=== PATIENT | female | born 1965 | race Caucasian/White ===

== ENCOUNTER → 2016-10-14 | Day surgery (SDC) | payer OTHER ==
[2016-09-21 04:59] VITALS: BMI 26.2
[~2016-10-14] MED LIST: BUPIVACAINE 0.5% 30 ML VIAL ONE; DEXAMETHASONE 4 MG/ML VIAL IV ONE; EPHEDrine 50 MG/ML VIAL IM ONE; FENTANYL 100 MCG/2 ML VIAL IV ONE; FENTANYL 100 MCG/2 ML VIAL IV PRN; HYDROmorphone 1 MG INJECTION IV PRN; LABETALOL 20 MG/4 ML SYRINGE IV PRN; LIDOCAINE 100 MG PFS IV ONE; Levofloxacin 500 mg/100 ml D5W 500 MG/100 ML RTU IV ONE; MEPERIDINE 25 MG/ML TUBEX IV PRN; METOCLOPRAMIDE 10 MG/2 ML VIAL ONE; MIDAZOLAM 2 MG/2 ML VIAL IV ONE; ONDANSETRON HCL 4 MG ODT TAB PO PRN; ONDANSETRON HCL 4 MG/2 ML VIAL IV ONE; ONDANSETRON HCL 4 MG/2 ML VIAL IV PRN; PROPOFOL 200 MG/20 ML VIAL IV ONE; hydrALAZINE 20 MG/ML VIAL IV PRN
[2016-10-14 10:50] VITALS: TEMP 97.1
--- NOTE | 2016-10-14 10:54 | HIM.ANES ---
Anesthesia Evaluation & Plan Diagnoses: TYPE 2 DIABETES MELLITUS WITH HYPERGLYCEMIA (10/14/16) GANGRENE, NOT ELSEWHERE CLASSIFIED (10/14/16) - Focused Review of Systems Cardiac History: Yes: Hx Hypertension (BLOOD PRESSURE FLUCTUATES), Hx Cardiac Disorders No: Hx Cardiac Catheterization, Hx Angioplasty, Hx Coronary Artery Bypass Graft HEENT: Yes: Hx Vision Problem (glasses), Other HEENT Problems Respiratory: No: Hx Asthma, Hx Emphysema, Hx Chronic Obstructive Pulmonary Disease (COPD) , Hx Pneumonia Gastrointestinal: Yes: Hx Colonoscopy (2016 NORMAL) No: Hx Pancreatitis, Hx Gastrointestinal Disorders, Hx Diverticulosis Genitourinary: No: Hx Renal Disease, Hx Renal Failure Neurological/Musculoskeletal: Yes: Hx Neurological Disorders No: HX Cerebrovascular Accident, Hx Dementia, Hx Seizures Other Neurological Problems: DIABETIC NEUROPATHY Psychological: No Hx Depression, No Hx Mental/Emotional Disorders Endocrine: Yes: Hx Non-Insulin Dependent Diabetes (dx 2004) Blood/Autoimmune: No: Hx Blood Transfusions, Hx Anemia, Hx AIDS, Hx Hepatitis (type) Smoking Status: Never smoker Past Social History: Denies: Amphetamine Use, Barbiturate Use, Benzodiazipine Use, Cocaine Use, Heroin Use, Marijuana Use, Methadone Use, MDMA (Ecstasy) Use, Substance Use Disorder Surgical History: No: CABG, T&A, Cholecystectomy, Other Other Surgical History: PARTIAL HYSTERECTOMY 1989, BTL 1988 - Focused Physical Exam NPO since: after Midnight Mallampati: Class II Thyromental Distance: Greater than 3 Neck: Full Range of Motion Dental: Normal - no significant findings Cardiovascular/Chest: Normal (RRR no mumurs or rubs.) Respiratory: Lungs clear. negative: Rhonchi, Wheezing Any problems with anesthesia, including nausea and vomiting?: No Any relatives with a history of Malignant Hyperthermia?: No Does the patient have a history of Motion Sickness-: Yes Other: Problem List Problem Status Onset Open wound of fourth toe of left foot Acute Sepsis Acute Diabetes mellitus Chronic Allergies Allergy/AdvReac Type Severity Reaction Status Date / Time Penicillins Allergy Edema-Oral/ Verified 10/14/16 10:45 Lip Sulfa (Sulfonamide Allergy Edema-Oral/ Verified 10/14/16 10:45 Antibiotics) Lip Home Medications Medication Instructions Recorded Last Taken Type MetFORMIN (Immediate Release) 1,000 mg PO BID 09/19/16 10/13/16 History [GLUCOPHAGE Immed Release] Potassium 99 mg PO DAILY 09/19/16 10/13/16 History Acetaminophen [Tylenol] 325 mg PO Q4-6H PRN 10/12/16 10/12/16 History Levofloxacin [Levaquin] 500 mg PO DAILY 10/12/16 10/13/16 History Linezolid [Zyvox] 600 mg PO BID 10/12/16 10/13/16 History Height and Weight Patient's height 5 ft 5 in Patient's weight 66.678 kg BMI 26.2 Vital Signs Temperature 97.1 F L 10/14/16 10:46 Pulse Rate 95 10/14/16 10:46 Respiratory Rate 18 10/14/16 10:46 Blood Pressure 159/94 10/14/16 10:46 Pulse Oxygen Saturation 100 10/14/16 10:46 - Anesthetic Plan Anesthesia Type: General ASA Class: 3 -: I have examined this patient and reviewed the medical record. The patient has been assessed prior to anesthesia. Risks and benefits of anesthesia and anesthetic technique options have been discussed and all questions answered. The patient accepts the risk and desires me to proceed with the planned anesthetic.
--- NOTE | 2016-10-14 12:19 | HIMOPRPT ---
DATE OF PROCEDURE: 10/14/16 PREOPERATIVE DIAGNOSIS: Dry gangrene of the fourth digit of the left foot POSTOPERATIVE DIAGNOSIS: Dry gangrene of the fourth digit of the left foot PROCEDURE: Amputation at metatarsophalangeal joint of the fourth digit of the left foot. SURGEON: Andrea Kessler DO. ANESTHESIA: General anesthesia, LMA ANESTHESIOLOGIST: Dr. Cory Maynard SPECIMEN: Fourth digit of the left foot. SPONGE COUNT: Correct. PATIENT CONDITION: Stable. ESTIMATED BLOOD LOSS: 1 ml. 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 It was recommended to this patient amputation of the fourth digit of the left foot at the metatarsal phalangeal joint. The risks associated with the operation were discussed with the patient including, but not limited to bleeding , infection, chronic nonhealing wound, chronic pain, phantom limb pain or phantom digit pain, need for further amputation of surgery, and perioperative cardiac and respiratory morbidity and mortality. FINDINGS: No purulent drainage identified at the time of amputation. No abscess identified. No necrotizing fasciitis identified. There was complete loss of integrity of the metatarsophalangeal joints secondary to ischemia and dry gangrene. PROCEDURE IN DETAIL: JONNY VICTORIA was then taken to the operative suite at [facility]. General anesthesia care was initiated. The left foot was sterilely prepped and draped in usual fashion. A circumferential incision was made completely encircling the base of the fourth digit. Dissection was carried down to the metatarsal phalangeal joint. The joint was transected, removing the remainder of the digit. The area was copiously irrigated. Hemostasis was achieved with direct pressure and with electrocautery. The area was infiltrated with local anesthetic. The3-0 Vicryl sutures was used for closure of the subcutaneous tissue and 4-0 Monocryl was used for closure of the skin. Aquacel Ag was placed over the wound. Dressing was applied. Anesthesia was reversed and Mrs. Victoria was taken to recovery having tolerated the procedure well.
[2016-10-14 13:31] VITALS: PULSE 93
[2016-10-14 17:46] VITALS: BP 188/91
--- NOTE | 2016-10-14 17:46 | SC.ANESPOS ---
Post-Anesthesia Note LOC: Fully Awake Post-Anesthesia Assessment: Awake, Returned to Baseline, Hemodynamically Stable , Pain Control Adequate Phase I & II Recovery Complete: Yes Apparent Anesthesia Complication: No : N - Vital Signs Blood Pressure: 188/91 Pulse: 93 Resp Rate: 18 O2 Sat: 97 Temp: 97.1 F
== END ==
LOC: SDC 10:24
PROVIDERS: ATTEND Surgery
PROC: 0Y6W0Z0 Detachment at Left 4th Toe, Complete, Open Approach (ICD-10-PCS; principal; 2016-10-14 11:05)
DX: I96 Gangrene, not elsewhere classified (principal); E11.65 Type 2 diabetes mellitus with hyperglycemia; E11.40 Type 2 diabetes mellitus with diabetic neuropathy, unspecified; I10 Essential (primary) hypertension; Z79.899 Other long term (current) drug therapy; Z79.84 Long term (current) use of oral hypoglycemic drugs
CPT/HCPCS: 28820; 81025; 82962; 87070; 87075; J1100; J1956; J2001; J2250; J2405; J2765; J3010; J3490